=== PATIENT | male | born 1995 | race Two or more races ===

== ENCOUNTER 2021-08-19 06:08 | Emergency (ER) | payer SELFPAY ==
[2021-08-19] MEDS: Ketorolac 30 MG/ML SDV IVPUSH ONE (06:22)
[2021-08-19] MEDS: Sodium Chloride 0.9% 1,000 ML IV ONE (06:23)
[2021-08-19] MEDS: Ondansetron 4 MG/2 ML SDV IVPUSH ONE (06:23)
[2021-08-19] MEDS: Sodium Chloride 0.9% 10 ML Syringe FLUSH PRN (06:35)
[2021-08-19 07:02] LABS: ESTIMATED GFR 105 mL/min (>60)
== END 2021-08-19 08:25 | disposition still patient (30) ==
LOC: FB.ED 06:08
DX: R31.9 Hematuria, unspecified (principal); R11.2 Nausea with vomiting, unspecified
CPT/HCPCS: 36415; 74176; 80053; 81001; 85025; 96361; 96374; 96375; 99283; 99284-25; J1885; J2405; J3490; J7030